=== PATIENT | female | born 1960 | race Caucasian/White ===

== ENCOUNTER → 2018-10-18 | Outpatient (CLI) | payer BC ==
[2015-07-15 07:53] VITALS: BP 101/72
[~2018-10-18] MED LIST: AMBIEN5 M1 PO; DESYREL DIVIDO150 M1 PO; GABAPENTIN600 MG PO; KLONOPIN1 MG PO; NORCO 325 MG-101 TAB PO; PROZAC10 M2 PO; SYNTHROID0.075 MG/T PO; ZANAFLEX CAPSULE2 MG PO
[2018-10-18 15:43] LABS: EOS # 0.1 (0.04-0.40); EOS % 2.3 % (1.0-5.0); HEMATOCRIT 36.7 % (37.0-47.0); HEMOGLOBIN 11.7 g/dL (12.5-16.0); LYMPH# 2.2 (1.50-4.00); MEAN CELL VOLUME 87 fl (78-100); MEAN CORPUSCULAR HEMOGLOBIN 28 pg (27-31); MEAN CORPUSCULAR HGB CONC 32 g/dL (33-37); MONO # 0.3 (0.20-0.80); NEU # 2.2 (1.40-6.50); PLATELET COUNT 243 K/mm3 (130-400); RED CELL DISTRIBUTION WIDTH 13.8 % (11.5-14.5); WHITE BLOOD COUNT 4.8 K/mm3 (4.8-10.8)
[2018-10-18 16:13] LABS: ALBUMIN 4.3 g/dL (3.5-5.0); CALCIUM 9.3 mg/dL (8.4-10.2); POTASSIUM 3.9 mmol/L (3.6-5.0); TOTAL BILIRUBIN 0.3 mg/dL (0.2-1.3)
[2018-10-18 17:28] LABS: ERYTHROCYTE SEDIMENTATION RATE 10 mm/hr (0-30)
== END ==
LOC: LAB 15:27
PROVIDERS: Internal Medicine
DX: Z00.00 Encounter for general adult medical examination without abnormal findings (principal); M25.561 Pain in right knee

== ENCOUNTER → 2018-12-05 | Outpatient (CLI) | payer BC ==
[2015-07-15 07:53] VITALS: BP 101/72
== END ==
LOC: LAB 16:12
DX: Z00.00 Encounter for general adult medical examination without abnormal findings (principal); K90.9 Intestinal malabsorption, unspecified

== ENCOUNTER → 2019-04-21 | Outpatient (CLI) | payer BC ==
[2015-07-15 07:53] VITALS: BP 101/72
[2019-04-21 17:37] LABS: EOS # 0.1 (0.04-0.40); HEMATOCRIT 35.4 % (37.0-47.0); HEMOGLOBIN 11.5 g/dL (12.5-16.0); LYMPH# 2.2 (1.50-4.00); MEAN CELL VOLUME 85 fl (78-100); MEAN CORPUSCULAR HEMOGLOBIN 28 pg (27-31); MEAN CORPUSCULAR HGB CONC 33 g/dL (33-37); MEAN PLATELET VOLUME 8.6 fl (7.4-10.4); MONO # 0.5 (0.20-0.80); NEU # 2.6 (1.40-6.50); PLATELET COUNT 255 K/mm3 (130-400); RED BLOOD COUNT 4.16 M/mm3 (4.10-5.30); RED CELL DISTRIBUTION WIDTH 13.8 % (11.5-14.5); WHITE BLOOD COUNT 5.4 K/mm3 (4.8-10.8)
[2019-04-21 17:45] LABS: ALBUMIN 4.2 g/dL (3.5-5.0)
[2019-04-21 17:46] LABS: POTASSIUM 3.8 mmol/L (3.5-5.1)
[2019-04-21 17:47] LABS: CALCIUM 9.4 mg/dL (8.3-10.5)
[2019-04-21 17:48] LABS: TOTAL PROTEIN 7.1 g/dL (6.4-8.3)
[2019-04-21 17:50] LABS: TOTAL BILIRUBIN 0.2 mg/dL (0.2-1.2)
[2019-04-21 18:40] LABS: ERYTHROCYTE SEDIMENTATION RATE 14 mm/hr (0-30)
== END ==
LOC: LAB 17:22
PROVIDERS: Internal Medicine
DX: Z00.00 Encounter for general adult medical examination without abnormal findings (principal); K90.89 Other intestinal malabsorption; E03.4 Atrophy of thyroid (acquired)

== ENCOUNTER → 2019-06-11 | Outpatient (CLI) | payer BC ==
[2015-07-15 07:53] VITALS: BP 101/72
== END ==
LOC: CARDREHAB 14:13
DX: G47.10 Hypersomnia, unspecified (principal); G47.8 Other sleep disorders
CPT/HCPCS: G0399

== ENCOUNTER → 2020-03-23 | Outpatient (CLI) | payer BC ==
[2015-07-15 07:53] VITALS: BP 101/72
== END ==
LOC: MAMMO 13:00
DX: Z12.31 Encounter for screening mammogram for malignant neoplasm of breast (principal)

== ENCOUNTER → 2020-05-08 | Outpatient (CLI) | payer BC ==
[2015-07-15 07:53] VITALS: BP 101/72
== END ==
LOC: LAB 16:45
DX: M79.10 Myalgia, unspecified site (principal); R05 Cough; R51.9 Headache, unspecified; Z20.828 Contact with and (suspected) exposure to other viral communicable diseases

== ENCOUNTER → 2020-05-24 | Outpatient (CLI) | payer BC ==
[2015-07-15 07:53] VITALS: BP 101/72
[2020-05-24 16:17] LABS: EOS # 0.1 (0.04-0.40); HEMATOCRIT 34.9 % (37.0-47.0); HEMOGLOBIN 11.3 g/dL (12.5-16.0); LYMPH# 2.3 (1.50-4.00); MEAN CELL VOLUME 85 fl (78-100); MEAN CORPUSCULAR HEMOGLOBIN 27 pg (27-31); MEAN CORPUSCULAR HGB CONC 32 g/dL (33-37); MEAN PLATELET VOLUME 8.5 fl (7.4-10.4); MONO # 0.6 (0.20-0.80); PLATELET COUNT 323 K/mm3 (130-400); RED BLOOD COUNT 4.13 M/mm3 (4.10-5.30); RED CELL DISTRIBUTION WIDTH 13.2 % (11.5-14.5)
[2020-05-24 16:24] LABS: POTASSIUM 4.1 mmol/L (3.5-5.1)
[2020-05-24 16:25] LABS: ALBUMIN 4.1 g/dL (3.5-5.0)
[2020-05-24 16:26] LABS: CALCIUM 9.1 mg/dL (8.3-10.5)
[2020-05-24 16:27] LABS: TOTAL PROTEIN 7.7 g/dL (6.4-8.3)
[2020-05-24 16:29] LABS: TOTAL BILIRUBIN 0.2 mg/dL (0.2-1.2)
== END ==
LOC: LAB 16:05
PROVIDERS: Internal Medicine
DX: K90.9 Intestinal malabsorption, unspecified (principal)

== ENCOUNTER → 2022-03-31 | Outpatient (CLI) | payer OTHER ==
[2022-03-31 15:02] LABS: BASO # 0.02 K/mm3 (0.02-0.10); EOS # 0.14 K/mm3 (0.04-0.40); EOS % 2.4 % (1.0-5.0); HEMATOCRIT 36.2 % (37.0-47.0); HEMOGLOBIN 11.9 g/dL (12.5-16.0); LYMPH# 1.99 K/mm3 (1.50-4.00); MEAN CELL VOLUME 85 fl (78-100); MEAN CORPUSCULAR HEMOGLOBIN 28 pg (27-31); MEAN CORPUSCULAR HGB CONC 33 g/dL (33-37); MEAN PLATELET VOLUME 8.5 fl (7.4-10.4); MONO # 0.43 K/mm3 (0.20-0.80); NEU # 3.32 K/mm3 (1.40-6.50); PLATELET COUNT 230 K/mm3 (130-400); RED BLOOD COUNT 4.28 M/mm3 (4.10-5.30); RED CELL DISTRIBUTION WIDTH 13.1 % (11.5-14.5); WHITE BLOOD COUNT 5.9 K/mm3 (4.8-10.8)
[2022-03-31 15:30] LABS: ALBUMIN 4.3 g/dL (3.4-4.8); POTASSIUM 4.3 mmol/L (3.5-5.1)
[2022-03-31 15:31] LABS: CALCIUM 9.6 mg/dL (8.3-10.5)
[2022-03-31 15:34] LABS: TOTAL BILIRUBIN 0.2 mg/dL (0.2-1.2)
[2022-03-31 17:14] LABS: ERYTHROCYTE SEDIMENTATION RATE 3 mm/hr (0-30)
[2022-04-07 13:59] LABS: VITAMIN B1 111
== END ==
LOC: LAB 14:42
PROVIDERS: Internal Medicine
DX: R41.3 Other amnesia (principal)

== ENCOUNTER → 2024-01-23 | Outpatient (CLI) | payer OTHER | LOC: RAD 09:05 | DX: M16.11 Unilateral primary osteoarthritis, right hip (principal); M47.816 Spondylosis without myelopathy or radiculopathy, lumbar region ==

== ENCOUNTER → 2024-03-19 | Outpatient (CLI) | payer OTHER | LOC: RAD 09:11 | DX: M16.0 Bilateral primary osteoarthritis of hip (principal) ==

== ENCOUNTER 2024-04-10 13:26 | Outpatient (RCR) | payer OTHER ==
[2024-07-16] MEDS ORDERED: CYCLOBENZAPRINE10 M1 PO (12:25)
[2024-07-16] MEDS ORDERED: GABAPENTIN TAB600 MG PO (12:31)
[2024-07-16] MEDS ORDERED: ACETAMINOPHEN-H1 TA1 PO (12:32)
[2024-07-16] MEDS ORDERED: HYDROXYZINE PAM50 M2 PO (12:34)
[2024-07-16] MEDS ORDERED: LEVOTHYROXINE0.05 MG PO (12:34)
[2024-07-16] MEDS ORDERED: ZOFRAN ODT4 MG PO (13:29)
== END 2024-05-08 ==
LOC: PT
DX: M70.61 Trochanteric bursitis, right hip (principal)

== ENCOUNTER 2024-05-09 13:21 | Outpatient (RCR) | payer OTHER ==
[2024-07-16] MEDS ORDERED: CYCLOBENZAPRINE10 M1 PO (12:25)
[2024-07-16] MEDS ORDERED: GABAPENTIN TAB600 MG PO (12:31)
[2024-07-16] MEDS ORDERED: ACETAMINOPHEN-H1 TA1 PO (12:32)
[2024-07-16] MEDS ORDERED: LEVOTHYROXINE0.05 MG PO (12:34)
[2024-07-16] MEDS ORDERED: HYDROXYZINE PAM50 M2 PO (12:34)
[2024-07-16] MEDS ORDERED: ZOFRAN ODT4 MG PO (13:29)
== END 2024-06-07 ==
LOC: PT
DX: M70.61 Trochanteric bursitis, right hip (principal); Z98.890 Other specified postprocedural states

== ENCOUNTER → 2024-05-09 | Outpatient (CLI) | payer OTHER ==
[2024-05-09 11:07] LABS: BASO # 0.02 K/mm3 (0.02-0.10); EOS # 0.16 K/mm3 (0.04-0.40); EOS % 2.5 % (1.0-5.0); HEMATOCRIT 36.5 % (37.0-47.0); HEMOGLOBIN 11.7 g/dL (12.5-16.0); LYMPH# 1.99 K/mm3 (1.50-4.00); MEAN CELL VOLUME 87 fl (78-100); MEAN CORPUSCULAR HEMOGLOBIN 28 pg (27-31); MEAN CORPUSCULAR HGB CONC 32 g/dL (33-37); MEAN PLATELET VOLUME 8.7 fl (7.4-10.4); MONO # 0.51 K/mm3 (0.20-0.80); PLATELET COUNT 263 K/mm3 (130-400); RED BLOOD COUNT 4.21 M/mm3 (4.10-5.30); WHITE BLOOD COUNT 6.4 K/mm3 (4.8-10.8)
[2024-05-09 11:13] LABS: ALBUMIN 4.2 g/dL (3.4-4.8)
[2024-05-09 11:14] LABS: CALCIUM 9.3 mg/dL (8.3-10.5)
[2024-05-09 11:16] LABS: TOTAL PROTEIN 6.8 g/dL (6.2-8.1)
[2024-05-09 11:17] LABS: TOTAL BILIRUBIN 0.3 mg/dL (0.2-1.2)
[2024-05-09 11:40] LABS: MAGNESIUM 1.84 mg/dL (1.60-2.60)
== END ==
LOC: LAB 10:52
PROVIDERS: Internal Medicine
DX: K90.9 Intestinal malabsorption, unspecified (principal); F32.1 Major depressive disorder, single episode, moderate; D64.9 Anemia, unspecified; E78.2 Mixed hyperlipidemia; R73.9 Hyperglycemia, unspecified

== ENCOUNTER → 2024-09-25 | Outpatient (CLI) | payer OTHER ==
[~2024-09-25] MED LIST changes: +ACETAMINOPHEN-H1 TA1 PO; +CYCLOBENZAPRINE10 M1 PO; +GABAPENTIN TAB600 MG PO; +HYDROXYZINE PAM50 M2 PO; +LEVOTHYROXINE0.05 MG PO; +ZOFRAN ODT4 MG PO
== END ==
LOC: LAB 10:47
DX: M85.80 Other specified disorders of bone density and structure, unspecified site (principal)